=== PATIENT | female | born 1980 ===

== ENCOUNTER 2025-03-01 16:38 | Observation (INO) | payer OTHER ==
[~2025-03-01] VITALS: Ht 160 cm; Wt 77.7 kg
[2025-03-01 21:00] LABS: BASOPHILS ABSOLUTE AUTO 0.05 K/mm3 (0.00-0.23); BASOPHILS PERCENT AUTO 1 % (0-2); EOSINOPHILS ABSOLUTE AUTO 0.32 K/mm3 (0.00-0.68); EOSINOPHILS PERCENT AUTO 5 % (0-6); Hematocrit 34.7 % (33.0-51.0); Hemoglobin 11.7 g/dL (11.5-16.0); IMMATURE GRAN ABSOLUTE AUTO 0.03 K/mm3 (0.00-0.10); IMMATURE GRAN PERCENT AUTO 1 % (0-1); LYMPHOCYTES ABSOLUTE AUTO 1.88 K/mm3 (0.84-5.20); LYMPHOCYTES PERCENT AUTO 29 % (21-46); MONOCYTES ABSOLUTE AUTO 0.58 K/mm3 (0.16-1.47); MONOCYTES PERCENT AUTO 9 % (4-13); Mean Corpuscular HGB Conc 33.7 g/dL (31.5-36.5); Mean Corpuscular Volume 85 fL (80-100); NEUTROPHILS ABSOLUTE AUTO 3.68 K/mm3 (1.96-9.15); NEUTROPHILS PERCENT AUTO 56 % (41-73); NRBC ABSOLUTE 0.00 K/mm3 (0.00-0.02); NRBC Auto 0.0 /100 WBC (0.0-0.2); Platelet Count 346 K/mm3 (150-400); RDW Coefficient Variation 12.9 % (11.7-14.2); RDW Standard Deviation 39.6 fL (35.1-46.3)
[2025-03-01 21:24] LABS: Alanine Aminotransfer (ALT/SGP 24 U/L (12-78); Albumin, Blood 3.1 g/dL (3.4-5.0); Albumin/Globulin Ratio 0.9 (0.8-1.8); Anion Gap 8 mmol/L (3-11); Aspartate Aminotrans (AST/SGOT 15 U/L (12-37); Beta HCG, Quantitative, Serum <1 mIU/mL (0-3); Bilirubin, Total 0.1 mg/dL (0.1-1.0); Blood Urea Nitrogen 15 mg/dL (8-24); CO2, Blood 29 mmol/L (21-32); Calcium, Blood 9.0 mg/dL (8.5-10.1); Chloride, Blood 106 mmol/L (98-108); Creatinine, Blood 0.68 mg/dL (0.40-1.00); Globulin, Blood 3.6 g/dL (2.2-4.0); Glucose, Blood 159 mg/dL (70-99); Potassium, Blood 3.6 mmol/L (3.5-5.5); Sodium, Blood 139 mmol/L (136-145); Total Protein, Blood 6.7 g/dL (6.4-8.2)
[2025-03-01] MEDS ORDERED: Ondansetron HCl 2 MG / ML 2ML Vial IV ONE (21:55)
[2025-03-01] MEDS ORDERED: NS 1,000 ML IV SCH (21:55)
[2025-03-01 21:58] LABS: Source, Urine Clean Catch
[2025-03-01 22:01] LABS: Bilirubin, Urine Neg (Neg); Glucose Qualitative, Urine Neg (Neg); Ketones, Urine Neg (Neg); Leukocyte Esterase, Urine 1+ (Neg); Protein, Urine 1+ (Neg); Specific Gravity, Urine 1.015 (1.003-1.022); Urobilinogen, Urine NORM (Normal)
[2025-03-01 22:16] LABS: Color, Urine Yellow (P-Yellow)
[2025-03-01 22:17] LABS: Red Blood Cells, Urine 0-2 /hpf (0-2)
[2025-03-01 22:18] LABS: U Amphetamine Screen DETECTED; U Barbiturate Screen Not Detected; U Benzodiazapine Screen Not Detected; U Buprenorphine Screen Not Detected; U Cannabinoids Screen DETECTED; U Cocaine Screen Not Detected; U Methadone Screen Not Detected; U Methamphetamine Screen DETECTED; U Opiates Screen Not Detected; U Oxycodone Screen Not Detected; U Phencyclidine Screen Not Detected
[2025-03-01] MEDS ORDERED: CefTRIAXone Sodium 1,000 MG in NS 50 ML IV ONE (22:35)
[2025-03-01] MEDS ORDERED: Ketorolac Tromethamine 15mg Vial IV ONE (22:40)
[2025-03-02] VITALS (8 sets, daily range): BP systolic 89–105; BP diastolic 54–75
[2025-03-02] MEDS ORDERED: NS 1,000 ML IV SCH ×4 (01:35→22:40)
[2025-03-02] MEDS ORDERED: Ketorolac Tromethamine 15mg Vial IV ONE (08:05)
[2025-03-02 09:17] LABS: Source, Urine Clean Catch
[2025-03-02] MEDS ORDERED: FLU VACC TS2025-26(6MOS UP)/PF 45 MCG/0.5 ML SYRINGE IM SCH (09:20)
[2025-03-02 09:23] LABS: Bilirubin, Urine Neg (Neg); Color, Urine Yellow (P-Yellow); Glucose Qualitative, Urine Neg (Neg); Ketones, Urine Neg (Neg); Leukocyte Esterase, Urine Neg (Neg); Protein, Urine Neg (Neg); Specific Gravity, Urine 1.010 (1.003-1.022); Urobilinogen, Urine NORM (Normal)
[2025-03-02 09:33] LABS: Red Blood Cells, Urine 0-2 /hpf (0-2); White Blood Cells, Urine 0-2 /hpf (0-5)
[2025-03-02 09:53] LABS: pH Blood Venous 7.35 (7.34-7.37)
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
[2025-03-03 04:05] VITALS: BP 91/63
[2025-03-03 04:49] LABS: BASOPHILS ABSOLUTE AUTO 0.04 K/mm3 (0.00-0.23); BASOPHILS PERCENT AUTO 1 % (0-2); EOSINOPHILS ABSOLUTE AUTO 0.24 K/mm3 (0.00-0.68); EOSINOPHILS PERCENT AUTO 3 % (0-6); Hematocrit 33.8 % (33.0-51.0); Hemoglobin 10.9 g/dL (11.5-16.0); IMMATURE GRAN ABSOLUTE AUTO 0.05 K/mm3 (0.00-0.10); IMMATURE GRAN PERCENT AUTO 1 % (0-1); LYMPHOCYTES ABSOLUTE AUTO 2.20 K/mm3 (0.84-5.20); LYMPHOCYTES PERCENT AUTO 31 % (21-46); MONOCYTES ABSOLUTE AUTO 0.54 K/mm3 (0.16-1.47); MONOCYTES PERCENT AUTO 8 % (4-13); Mean Corpuscular HGB Conc 32.2 g/dL (31.5-36.5); Mean Corpuscular Volume 88 fL (80-100); NEUTROPHILS ABSOLUTE AUTO 3.99 K/mm3 (1.96-9.15); NEUTROPHILS PERCENT AUTO 57 % (41-73); NRBC ABSOLUTE 0.00 K/mm3 (0.00-0.02); NRBC Auto 0.0 /100 WBC (0.0-0.2); Platelet Count 349 K/mm3 (150-400); RDW Coefficient Variation 13.2 % (11.7-14.2); RDW Standard Deviation 42.8 fL (35.1-46.3)
[2025-03-03 05:22] LABS: Alanine Aminotransfer (ALT/SGP 17.0 U/L (12-78); Albumin, Blood 2.1 g/dL (3.4-5.0); Albumin/Globulin Ratio 0.8 (0.8-1.8); Anion Gap 7.0 mmol/L (3-11); Aspartate Aminotrans (AST/SGOT 9.0 U/L (12-37); Bilirubin, Total 0.2 mg/dL (0.1-1.0); Blood Urea Nitrogen 7.0 mg/dL (8-24); CO2, Blood 24.0 mmol/L (21-32); Calcium, Blood 7.7 mg/dL (8.5-10.1); Chloride, Blood 115.0 mmol/L (98-108); Creatinine, Blood 0.59 mg/dL (0.40-1.00); Globulin, Blood 2.8 g/dL (2.2-4.0); Glucose, Blood 93.0 mg/dL (70-99); Potassium, Blood 4.0 mmol/L (3.5-5.5); Sodium, Blood 142.0 mmol/L (136-145); Total Protein, Blood 4.9 g/dL (6.4-8.2)
[2025-03-03] MEDS ORDERED: CefTRIAXone Sodium 1,000 MG in NS 100 ML IV SCH (06:05)
--- NOTE | 2025-03-03 06:22 | NUR ---
SHIFT SUMMARY PT A&O X4, CALM, COOPERATIVE TO CARE. PT SLEEPY T/O NIGHT. HR IN THE 40'S-50'S ,SR. SHE DENIES ANY CP/PRESSURE, NUMB/TINGLING, SBP SOFT IN THE 90'S, MAP RANGING FROM 64-73, MD NOTIFIED OF SOFT PRESSURE. PT GIVEN A ONE TIME DOSE OF MIDODRINE 10MG AND STARTED ON FLUIDS AT 75ML/HR. PT DENIES ANY DIZZINESS OR LIGHT HEADED. LAST BP OF 91/63, MAP 73. PT UP TO BSC T/O NIGHT. SHE IS RESTING IN BED AT THIS TIME. CALL LIGHT IN REACH. WILL MONITOR PT AND REPORT TO ONCOMING RN.
[2025-03-03 08:36] VITALS: BP 98/61
[2025-03-03] MEDS ORDERED: Enoxaparin 40 MG/0.4 ML SYR SC SCH (09:00)
[2025-03-03 10:00] VITALS: BP 145/108
[2025-03-03 10:07] VITALS: BP 107/62
[2025-03-03 10:10] VITALS: BP 108/65
--- NOTE | 2025-03-03 10:13 | NUR ---
Orthostatic vital signs: lying 145/108 (119) sitting 107/62 (75) standing 108/65 (76)
--- NOTE | 2025-03-03 10:15 | NUR ---
Pt walked to toilet in bathroom with primary RN Vanessa standing by. Pt tolerated it well.
[2025-03-03 12:00] VITALS: BP 103/64
[2025-03-03] MEDS ORDERED: FLUDROCORTISON0.1 MG PO (13:01)
--- NOTE | 2025-03-03 16:40 | NUR ---
DISCHARGE NOTE- PT WAS GIVEN VERBAL AND WRITTEN DISCHARGE INSTRUCTIONS AND ACKNOWLEDGED UNDERSTANDING OF THEM. IV AND TELE DC'D AT THE TIME OF DC EDUCATION, CARE MANAGEMENT ARRANGING FOR TRANSPORT. PT HAS NEW PT APPOINTMENTS SCHEDULED WITH GYNOCOLOGY, PCP AND UROLOGY. SHE IS AWARE OF THE APPOINTMENT TIME AND LOCATION. STILL AWAITING INSUARANCE APPROVAL FOR TRANSPORT AT THIS TIME. IF NOTHING IS HEARD BY 1700 ARRANGEMENTS WILL BE MADE FOR THE PT TO BE TRANSPORTED TO THE [facility]. PT IS AWARE OF THE PLAN.
== END 2025-03-03 17:30 | disposition home or self-care (01) ==
LOC: ER 16:38 → PCU 16:39 → MEDS 16:39 → ER 16:39 → MEDS 16:39 → PCU 03-02 15:00
PROVIDERS: Student in an Organized Health Care Education/Training Program; ADMIT Internal Medicine
DX: G92.8 Other toxic encephalopathy (principal); N13.2 Hydronephrosis with renal and ureteral calculous obstruction; E86.0 Dehydration; I95.9 Hypotension, unspecified; D27.1 Benign neoplasm of left ovary; F15.90 Other stimulant use, unspecified, uncomplicated; Z87.891 Personal history of nicotine dependence
CPT/HCPCS: 36415; 51701; 73030; 74177; 80053; 81001; 82803; 83605; 83690; 84702; 85025; 87086; 96361; 96372; 96374; 96375; 96376; 99285-25; A9270; G0378; J0696; J1650; J1885; J2405; J7030; Q9967